=== PATIENT | male | born 1955 | race Caucasian/White ===

== ENCOUNTER 2017-05-08 14:04 | Emergency (ER) | payer OTHER ==
[~2017-05-08] VITALS: Ht 170.2 cm; Wt 68.0 kg
--- NOTE | 2017-05-08 15:15 | NUR ---
BUBBA CHRISTIAN AT THE BEDSIDE FOR MSE.
--- NOTE | 2017-05-08 16:02 | NUR ---
PT WALKINFG AROUND WITH STEADY GAIT, AXOX4, NO SIN OF DISTRESS.
[2017-05-08 16:11] LABS: *BLOOD, URINE 3+ (NEGATIVE); *CLARITY,URINE SLIGHTLY CLOUDY (CLEAR); *COLOR,URINE YELLOW (YELLOW); *KETONES,URINE 3+ (NEGATIVE); *PROTEIN,URINE 1+ (NEGATIVE); *UROBILINOGEN,URINE 0.2 E.U./dl (NORMAL); LEUKOCYTE ESTERASE ,URINE NEGATIVE (NEGATIVE); NITRITE, URINE NEGATIVE (NEGATIVE); PH,URINE 5.5 (5.0-8.0); UGLUCOSE NEGATIVE (NEGATIVE)
[2017-05-08 16:21] LABS: *BILIRUBIN,URIN 1+ (NEGATIVE)
[2017-05-08 16:24] LABS: RBC,URINE 20-50 /HPF (0-3)
[2017-05-08 16:25] LABS: BACTERIA,URINE NONE SEEN /HPF (NONE SEEN); SQUAMOUS EPITHELIAL CELL,UR FEW /HPF (NONE SEEN)
--- NOTE | 2017-05-08 19:23 | NUR ---
Patient discharged to home in stable conditon. Written and verbal after care instructions given. Patient verbalizes understanding of instructions.PT WALKS IN STEADY GAIT. PT D/C WITH [facility]. PT UNDERSTANDS THAT NEEDS TO FOLLOW UP WITH UROLOGIST. Addendum: 05/08/17 at 1928 by EMEKA pt not driving.
[2017-05-08 19:28] VITALS: BP 111/78
== END 2017-05-08 17:10 | disposition home or self-care (01) ==
LOC: ER 14:04
DX: F11.10 Opioid abuse, uncomplicated (principal); R33.9 Retention of urine, unspecified; I10 Essential (primary) hypertension
CPT/HCPCS: 51702; A4663

== ENCOUNTER 2022-06-01 04:45 | Emergency (ER) | payer OTHER ==
[~2022-06-01] VITALS: Ht 167.6 cm; Wt 72.6 kg
--- NOTE | 2022-06-01 05:12 | NUR ---
MD t bedside for exam, informed of plan of care at this time. No s/s of any distress noted, will continue to monitor.
--- NOTE | 2022-06-01 05:15 | NUR ---
ER nurse Davon at bedside as per MD order for newman cath placement.
--- NOTE | 2022-06-01 05:27 | NUR ---
Lab at bedside.
[2022-06-01 05:30] LABS: HEMATOCRIT 44.8 % (36.7-47.1); MEAN CORPUSCULAR HEMOGLOBIN 26.9 uug (23.8-33.4); MEAN CORPUSCULAR VOLUME 80.7 fL (73.0-96.2); PLATELET COUNT (AUTO) 270 K/uL (152-348)
[2022-06-01 05:41] LABS: *BILIRUBIN,URIN NEGATIVE (NEGATIVE); *BLOOD, URINE NEGATIVE (NEGATIVE); *CLARITY,URINE CLEAR (CLEAR); *COLOR,URINE YELLOW (YELLOW); *KETONES,URINE 3+ (NEGATIVE); *UROBILINOGEN,URINE 0.2 E.U./dl (NORMAL); LEUKOCYTE ESTERASE ,URINE NEGATIVE (NEGATIVE); NITRITE, URINE NEGATIVE (NEGATIVE); PH,URINE 6.5 (5.0-8.0); UGLUCOSE NEGATIVE (NEGATIVE)
[2022-06-01 05:42] LABS: CREATININE 0.9 mg/dL (0.6-1.3); POTASSIUM 3.7 mmol/L (3.5-5.1)
[2022-06-01 05:47] LABS: BILIRUBIN,DIRECT 0.3 mg/dL (0.0-0.2); BILIRUBIN,TOTAL 1.3 mg/dL (0.2-1.0); TOTAL PROTEIN, SERUM 7.9 g/dL (6.4-8.2)
--- NOTE | 2022-06-01 06:31 | NUR ---
patient continues to await lab results, no voiced c/o at this time.
--- NOTE | 2022-06-01 06:44 | NUR ---
MD at bedside talking to patient.
--- NOTE | 2022-06-01 06:54 | NUR ---
Rivas converted to leg bag, 350cc out-put noted, ACI given remains stable for discharge.
[2022-06-01 06:55] VITALS: BP 162/100
== END 2022-06-01 06:55 | disposition home or self-care (01) ==
LOC: ER 04:50
DX: R33.9 Retention of urine, unspecified (principal); I10 Essential (primary) hypertension
CPT/HCPCS: 36415; 51702; 85025; A4663

== ENCOUNTER 2022-06-26 06:26 | Emergency (ER) | payer OTHER ==
[~2022-06-26] VITALS: Ht 172.7 cm; Wt 72.6 kg
--- NOTE | 2022-06-26 07:07 | NUR ---
Pt seen by . Safety measures in place. Will continue to monitor.
--- NOTE | 2022-06-26 07:28 | NUR ---
Sent UA to lab.
[2022-06-26 07:49] LABS: *BILIRUBIN,URIN NEGATIVE (NEGATIVE); *BLOOD, URINE NEGATIVE (NEGATIVE); *CLARITY,URINE CLEAR (CLEAR); *COLOR,URINE YELLOW (YELLOW); *KETONES,URINE 1+ (NEGATIVE); *UROBILINOGEN,URINE 0.2 E.U./dl (NORMAL); LEUKOCYTE ESTERASE ,URINE NEGATIVE (NEGATIVE); NITRITE, URINE NEGATIVE (NEGATIVE); PH,URINE 6.5 (5.0-8.0); UGLUCOSE NEGATIVE (NEGATIVE)
--- NOTE | 2022-06-26 08:18 | NUR ---
Patient discharged to home in stable condition. Written and verbal after care instructions given. Patient verbalizes understanding of instructions. Stressed follow up or return to ER for worsening s/s.
[2022-06-26 08:25] VITALS: BP 145/82
[2022-06-26 09:33] LABS: BACTERIA,URINE NONE SEEN /HPF (NONE SEEN); CALCIUM OXALATE CRYSTALS,UR RARE /HPF (NONE SEEN); SQUAMOUS EPITHELIAL CELL,UR NONE SEEN /HPF (NONE SEEN); WBC,URINE NONE SEEN /HPF (0-3)
== END 2022-06-26 08:25 | disposition home or self-care (01) ==
LOC: ER 06:26
DX: R33.9 Retention of urine, unspecified (principal); I10 Essential (primary) hypertension
CPT/HCPCS: 51702; A4663

== ENCOUNTER 2022-07-16 09:45 | Emergency (ER) | payer OTHER ==
[~2022-07-16] VITALS: Ht 165.1 cm; Wt 68.0 kg
--- NOTE | 2022-07-16 10:35 | NUR ---
PT WAS EVALUATED BY DR ARREGUIN. PT WAS D/C'd TO HOME. D/C INSTRUCTIONS GIVEN TO THE PT BY DR ARREGUIN.
[2022-07-16 10:36] VITALS: BP 142/88
== END 2022-07-16 11:06 | disposition home or self-care (01) ==
LOC: ER 09:48
DX: R33.9 Retention of urine, unspecified (principal); I10 Essential (primary) hypertension
CPT/HCPCS: 51702; A4663

== ENCOUNTER 2023-01-25 05:30 | Emergency (ER) | payer OTHER ==
[~2023-01-25] VITALS: Ht 167.6 cm; Wt 68.0 kg
[2023-01-25] MEDS ORDERED: CEPH500C2 PO (07:27)
[2023-01-25 07:59] VITALS: BP 123/66; O2SAT 100
[2023-01-25 08:46] LABS: *BILIRUBIN,URIN NEGATIVE (NEGATIVE); *BLOOD, URINE 1+ (NEGATIVE); *CLARITY,URINE CLEAR (CLEAR); *COLOR,URINE YELLOW (YELLOW); *KETONES,URINE NEGATIVE (NEGATIVE); *PROTEIN,URINE TRACE (NEGATIVE); *UROBILINOGEN,URINE 0.2 E.U./dl (NORMAL); LEUKOCYTE ESTERASE ,URINE NEGATIVE (NEGATIVE); NITRITE, URINE NEGATIVE (NEGATIVE); UGLUCOSE NEGATIVE (NEGATIVE)
[2023-01-25 09:05] LABS: BACTERIA,URINE FEW /HPF (NONE SEEN); SQUAMOUS EPITHELIAL CELL,UR FEW /HPF (NONE SEEN); URINE AMORPHOUS URATE MANY /HPF; WBC,URINE NONE SEEN /HPF (0-3)
== END 2023-01-25 08:00 | disposition home or self-care (01) ==
LOC: ER 05:39
DX: R33.9 Retention of urine, unspecified (principal); I10 Essential (primary) hypertension; Z79.899 Other long term (current) drug therapy; Z60.2 Problems related to living alone
CPT/HCPCS: 51702; A4606; A4663

== ENCOUNTER 2023-01-29 03:24 | Emergency (ER) | payer OTHER ==
[~2023-01-29] VITALS: Ht 167.6 cm; Wt 68.0 kg
[~2023-01-29 03:24] MED LIST: CEPH500C2 PO
[2023-01-29 03:50] LABS: *BILIRUBIN,URIN NEGATIVE (NEGATIVE); *BLOOD, URINE 2+ (NEGATIVE); *CLARITY,URINE CLEAR (CLEAR); *COLOR,URINE YELLOW (YELLOW); *KETONES,URINE NEGATIVE (NEGATIVE); *PROTEIN,URINE NEGATIVE (NEGATIVE); *UROBILINOGEN,URINE 0.2 E.U./dl (NORMAL); LEUKOCYTE ESTERASE ,URINE NEGATIVE (NEGATIVE); NITRITE, URINE NEGATIVE (NEGATIVE); PH,URINE 6.5 (5.0-8.0); UGLUCOSE NEGATIVE (NEGATIVE)
[2023-01-29 03:59] LABS: BACTERIA,URINE NONE SEEN /HPF (NONE SEEN); RBC,URINE TNTC /HPF (0-3); SQUAMOUS EPITHELIAL CELL,UR FEW /HPF (NONE SEEN); WBC,URINE 0-3 /HPF (0-3)
[2023-01-29 04:00] LABS: CALCIUM OXALATE CRYSTALS,UR RARE /HPF (NONE SEEN)
[2023-01-29 04:16] VITALS: BP 121/101; O2SAT 99
== END 2023-01-29 04:16 | disposition home or self-care (01) ==
LOC: ER 03:26
DX: R33.9 Retention of urine, unspecified (principal); Z79.899 Other long term (current) drug therapy
CPT/HCPCS: 51702; A4606; A4663